=== PATIENT | male | born 2000 | race Two or more races ===

== ENCOUNTER 2019-09-14 17:09 | Emergency (ER) | payer OTHER ==
[~2019-09-14] VITALS: Ht 167.6 cm; Wt 56.7 kg
[2019-09-14] MEDS ORDERED: IBUPROFEN 800 MG TAB PO ONE (17:45)
[2019-09-14 22:00] VITALS: BP 112/61
== END 2019-09-14 22:05 | disposition home or self-care (01) ==
LOC: ER 17:09
DX: M79.641 Pain in right hand (principal); W22.8XXA Striking against or struck by other objects, initial encounter; Y93.89 Activity, other specified; Y92.89 Other specified places as the place of occurrence of the external cause; Y99.8 Other external cause status
CPT/HCPCS: 29125; 73130